=== PATIENT | female | born 1990 | race Asian ===

== ENCOUNTER → 2019-03-02 08:32 | Day surgery (SDC) | payer OTHER ==
[~2019-03-02 08:32] MED LIST: Buffered Lidocaine 1% SYRIN* 1 ML/SYRINGE INTRADERM ONE; Lactated Ringers 1000 ML Bag* 1,000 ML IV SCH; Lidocaine 2% PF * 5 ML VIAL ONE; Naloxone* 0.4 MG/ML 1 ML VIAL IV PRN; Ondansetron INJ* 2 MG/ML VIAL IV PRN; Propofol* 10 MG/ML 20 ML BTL ONE; Sodium Citrate/Citric Acid* 15 ML UDC ONE; Sodium Citrate/Citric Acid* 15 ML UDC PO ONE; fentaNYL* 50 MCG/ML 2 ML VIAL (100 MCG VIAL) IV PRN; fentaNYL* 50 MCG/ML 2 ML VIAL (100 MCG VIAL) ONE
[2019-03-02 10:19] LABS: Hematocrit 42 % (35-47); Hemoglobin 14.1 g/dL (12.0-16.0); Mean Corpuscular HGB Conc 33 g/dL (31-36); Mean Corpuscular Hemoglobin 27 pg (27-31); Mean Corpuscular Volume 80 fL (80-97); Mean Platelet Volume 12.1 fL (7.4-10.4); Platelet Count 149 10^3/uL (150-450); Red Blood Count 5.27 10^6 /uL (3.70-4.87); Red Cell Distribution Width 14 % (10-15); White Blood Count 6.6 10^3/uL (3.5-10.8)
[2019-03-02 12:05] VITALS: BP 111/73
--- NOTE | 2019-03-02 21:47 | OP ---
DATE OF OPERATION: 03/02/19 [facility] DATE OF : 89 SURGEON: Libia Latif MD ANESTHESIOLOGIST: Dr. Ferreira. ANESTHESIA: General. PRE-OP DIAGNOSIS: Endometrial polyp. POST-OP DIAGNOSIS: Endometrial polyp. OPERATIVE PROCEDURE: Hysteroscopy, dilation and curettage, and polypectomy with MyoSure. ESTIMATED BLOOD LOSS: Minimal. URINE OUTPUT: 200 cc. IV FLUIDS: 600 cc lactated Ringer's. MATERIALS TO LAB: Endometrial curettings and polyp fragments. INDICATIONS: This patient is a 28-year-old 0, followed in the office with possible concerns for infertility. Ultrasound was notable for a possible endometrial polyp. Office hysteroscopy confirmed a likely posterior wall polyp in the uterus. Considering this, the patient desired to proceed with a polypectomy in the operating room. She was extensively counseled and consent was signed. FINDINGS: Polypoid tissue in at least two spots in the uterus including the posterior wall. Endometrium was also quite thick. COMPLICATIONS: None. DESCRIPTION OF PROCEDURE: The risks, benefits and alternatives were described to the patient and informed consent was obtained. The patient was taken to the operating room with IV running, where general anesthesia was induced and found to be adequate. The patient was prepped and draped in the normal sterile fashion in the high lithotomy position in [facility]. A bivalve speculum was placed in the vagina after emptying the bladder. A single-tooth tenaculum was placed on the anterior cervix and the cervix was then gently dilated using Hanks dilators. Once it was dilated to size 26, a MyoSure hysteroscope was advanced through the cervix and into the uterine cavity with saline running. Fluid was managed using an Aquilex fluid management system. On entry into the uterine cavity, there was good visualization. The endometrium was quite thick, but there did appear to be 1 or 2 areas with polypoid tissue. A MyoSure REACH device was then obtained and placed through the scope. The polypoid tissue as well as areas of thick endometrium were resected using the MyoSure without difficulty. At that time, the scope was removed. A gentle curettage of the endometrium cavity was performed with a medium banjo curette and this was collected on Telfa. The single-tooth tenaculum was removed from the cervix. During the procedure, a small laceration of the anterior cervix occurred when the tenaculum pulled through the tissue. A single 3-0 Vicryl stitch was placed to reapproximate this site. There was no bleeding at that time. The speculum was then removed and the patient was returned to the supine position. The patient tolerated the procedure well. Sponge, lap, and needle counts were correct x2. [id number] #: [id number] MTDD
== END | disposition home or self-care (01) ==
LOC: OR 08:32
PROVIDERS: ATTEND Obstetrics & Gynecology
DX: N84.0 Polyp of corpus uteri (principal)
CPT/HCPCS: 36415; 81025; 85027; 88305; A9270-GY; J2704; J3010